=== PATIENT | female | born 1955 | race Caucasian/White ===

== ENCOUNTER 2020-04-10 10:26 | Outpatient (CLI) | payer MEDICARE ==
--- NOTE | 2020-04-10 11:01 | BD ---
EXAM: Bone densitometry using DEXA HISTORY: 65 yo female. Screening for postmenopausal osteoporosis FINDINGS: L1--bone mineral density 0.603 g/sq cm; T score -3.5 ; Z score -1.8 L2--bone mineral density 0.702 g/sq cm; T score -2.0 ; Z score -1.1 L3--bone mineral density 0.714 g/sq cm; T score -3.4 ; Z score -1.4 L4--bone mineral density 0.727 g/sq cm; T score -3.0 ; Z score -1.0 Total L1-L4--bone mineral density 0.727 g/sq cm; T score -3.0 ; Z score -1.0 Left femoral neck--bone mineral density0.507; T score -3.1 ; Z score -1.4 Total proximal left femur--bone mineral density 0.554; T score -3.2 ; Z score -1.8 There has been an interval reduction of 12.5% in the BMD of the lumbar spine and a reduction of 13. 8% in the BMD of the proximal femur since the previous study of 04/19/2012. IMPRESSION: Osteoporosis
--- NOTE | 2020-04-10 11:38 | MMO ---
Bilateral MAMMO Bilat Screen [facility]. CLINICAL HISTORY: Patient is 65 years old and is seen for screening. The patient has no family history of breast cancer. The patient has no personal history of cancer. VIEWS: The views performed were: bilateral craniocaudal with tomosynthesis and bilateral mediolateral oblique with tomosynthesis. FILMS COMPARED: The present examination has been compared to prior imaging studies performed at [facility] on 02/19/2003 and 08/13/2006. This study has been interpreted with the assistance of computer-aided detection. MAMMOGRAM FINDINGS: The breasts are heterogeneously dense, which could obscure a lesion on mammography. There are no suspicious masses, suspicious calcifications, or new areas of architectural distortion. IMPRESSION: THERE IS NO MAMMOGRAPHIC EVIDENCE OF MALIGNANCY. A ROUTINE FOLLOW-UP MAMMOGRAM IN 1 YEAR IS RECOMMENDED. THE RESULTS OF THIS EXAM WERE SENT TO THE PATIENT. ACR BI-RADS Category 1 - Negative MAMMOGRAPHY NOTE: 1. A negative mammogram report should not delay a biopsy if a dominant of clinically suspicious mass is present. 2. Approximately 10% to 15% of breast cancers are not detected by mammography. 3. Adenosis and dense breasts may obscure an underlying neoplasm. Reported by: PAT WALSH MD Electonically Signed: [id number]
== END 2020-04-10 10:27 | disposition home or self-care (01) ==
LOC: BICMAMMO 10:26
PROVIDERS: ATTEND Family Medicine
DX: Z12.31 Encounter for screening mammogram for malignant neoplasm of breast (principal); Z13.820 Encounter for screening for osteoporosis; N95.9 Unspecified menopausal and perimenopausal disorder; M81.0 Age-related osteoporosis without current pathological fracture
CPT/HCPCS: 77063; 77067; 77080